=== PATIENT | female | born 1970 | race Caucasian/White ===

== ENCOUNTER 2017-06-27 09:38 | Emergency (ER) | payer MEDICARE ==
--- NOTE | 2017-06-27 10:16 | UC ---
Throat Pain/Nasal Robert HPI - HPI Summary HPI Summary: sores on the lower lip x 3 days + painful, swollen, multiple sores on the mouth and and throat no fever, no chills no cold sx - History of Current Complaint Chief Complaint: UCGI Stated Complaint: ORAL/THROAT COMPLAINT Time Seen by Provider: 06/27/17 10:01 Hx Obtained From: Patient Hx Last Menstrual Period: 2009 ?: No Onset/Duration: Gradual Onset, Lasting Days - 3, Still Present Severity: Moderate Cough: None Associated Signs & Symptoms: Positive: Nasal Discharge. Negative: Wheezing, Hoarseness, Sinus Discomfort, Fever, Rash - Allergies/Home Medications Allergies/Adverse Reactions: Allergies Allergy/AdvReac Type Severity Reaction Status Date / Time ASPERIDOL Allergy Swelling Uncoded 06/27/17 09:57 Home Medications: Home Medications Docosanol 10%* [Abreva 10%*] 1 applic TOPICAL SEE INSTRUCTIONS 06/27/17 [ History Confirmed 06/27/17] PMH/Surg Hx/FS Hx/Imm Hx GI/ History: Gastroesophageal Reflux Psychological History: Depression - Surgical History Surgical History: Yes Surgery Procedure, Year, and Place: gallbladder. TUBAL. SCRAPING OF UTERUS - Family History Known Family History: Negative: Diabetes - Social History Alcohol Use: None Substance Use Type: None Smoking Status (MU): Never Smoked Tobacco Review of Systems Constitutional: Negative Skin: Negative Eyes: Negative ENT: Sore Throat Respiratory: Negative Cardiovascular: Negative Gastrointestinal: Negative Genitourinary: Negative All Other Systems Reviewed And Are Negative: Yes Physical Exam Triage Information Reviewed: Yes Appearance: Well-Appearing, No Pain Distress, Well-Nourished Vital Signs: Initial Vital Signs Temp 99.5 F 06/27/17 09:46 Pulse 100 06/27/17 09:46 Resp 20 06/27/17 09:46 BP 135/97 06/27/17 09:46 Pulse Ox 98 06/27/17 09:46 Vital Signs Reviewed: Yes Eyes: Positive: Conjunctiva Clear ENT: Positive: Normal ENT inspection, Hearing grossly normal, Pharyngeal erythema, Other: - + sores mid lower lip , swollen, tender , Neck: Positive: Supple, Tenderness @, Enlarged Nodes @ Respiratory: Positive: Chest non-tender, Lungs clear, Normal breath sounds Cardiovascular: Positive: RRR, No Murmur, Pulses Normal Musculoskeletal Exam: Normal Musculoskeletal: Positive: Strength Intact, ROM Intact, No Edema Skin Exam: Normal Throat Pain/Nasal Course/Dx - Differential Dx/Diagnosis Provider Diagnoses: cold sores. pharyngitis Discharge - Discharge Plan Condition: Stable Disposition: HOME Prescriptions: ValACYclovir (*) [Valtrex 500 mg (*)] 500 mg PO BID #6 tab Patient Education Materials: Oral Herpes Simplex Virus Infections (ED) Referrals: Ozzie Del Toro MD [Primary Care Provider] - 7 Days
[2017-06-27 10:17] VITALS: BP 135/97
== END 2017-06-27 10:21 | disposition home or self-care (01) ==
LOC: UCCORT 09:38
DX: B00.1 Herpesviral vesicular dermatitis (principal); J02.9 Acute pharyngitis, unspecified; Z88.8 Allergy status to other drugs, medicaments and biological substances
CPT/HCPCS: 99212; G0463

== ENCOUNTER 2019-02-26 11:28 | Emergency (ER) | payer MEDICARE ==
[2019-02-26 12:20] VITALS: BP 139/92
--- NOTE | 2019-02-26 12:37 | UC ---
UC General HPI - HPI Summary HPI Summary: pt states the inside and outside of her vaginal area is very red this am. she denies any discharge, odor or lesions. she had recent std testing which was negative. she has a hx of genital herpes but no recent out breaks. she wants to ensure not scabies. she denies use of any new soaps. - History of Current Complaint Chief Complaint: UCRash Stated Complaint: RASH PERSONAL Time Seen by Provider: 02/26/19 12:24 Hx Obtained From: Patient Hx Last Menstrual Period: 2009 Onset/Duration: Sudden Onset Timing: Constant Pain Intensity: 0 Associated Signs & Symptoms: Negative: Abdominal Pain, Dysuria, Fever - Allergy/Home Medications Allergies/Adverse Reactions: Allergies Allergy/AdvReac Type Severity Reaction Status Date / Time risperidone [From Risperdal] Allergy Severe WATER Verified 02/26/19 12:04 RETENTION Home Medications: Home Medications Gabapentin 600 mg PO QID 02/26/19 [History Confirmed 02/26/19] traMADol TAB* [Ultram*] 50 mg PO Q6HR PRN 02/26/19 [History Confirmed 02/26/19] PMH/Surg Hx/FS Hx/Imm Hx - Additional Past Medical History Additional PMH: genital herpes GI/ History: Gastroesophageal Reflux - Surgical History Surgical History: Yes Surgery Procedure, Year, and Place: gallbladder. TUBAL. SCRAPING OF UTERUS. CARPAL TUNNEL - Family History Known Family History: Positive: Non-Contributory Negative: Diabetes - Social History Alcohol Use: None Substance Use Type: None Smoking Status (MU): Never Smoked Tobacco Review of Systems All Other Systems Reviewed And Are Negative: Yes Constitutional: Negative: Fever Gastrointestinal: Negative: Abdominal Pain Genitourinary: Negative: Dysuria, Frequency, Urgency, Vaginal/Penile Itching, Vaginal/Penile Discharge, Ulceration/Lesion, Abnormal Bleeding Physical Exam Triage Information Reviewed: Yes Appearance: Well-Appearing Vital Signs: Initial Vital Signs Temp 97.9 F 02/26/19 12:09 Pulse 98 02/26/19 12:09 Resp 18 02/26/19 12:09 BP 139/92 02/26/19 12:09 Pulse Ox 98 02/26/19 12:09 Vital Signs Reviewed: Yes Eyes: Positive: Conjunctiva Clear ENT: Positive: Normal ENT inspection Neck: Positive: Supple Respiratory: Positive: Lungs clear Cardiovascular: Positive: RRR Abdomen Description: Positive: Nontender, No Organomegaly, Soft Bowel Sounds: Positive: Present Pelvic Exam: Positive: Other - Groin has no rash. No gential infestations. The inner labial folds and vaginal opening are injected but no lesions or ulcerations. No odor. Speculum exam shows no discharge or lesions. Musculoskeletal: Positive: ROM Intact Neurological: Positive: Alert Psychological: Positive: Age Appropriate Behavior Skin Exam: Normal Course/Dx - Course Course Of Treatment: PT DECLINED ANY STD TESTING. THE ERYTHEMA IS EXTERNAL/ EARLY HERPES OUTBREAK AND YEAST INFECTIONS ARE POSSIBLE THUS I WILL TX FOR BOTH. - Diagnoses Provider Diagnosis: Vulvovaginitis Discharge - Sign-Out/Discharge Documenting (check all that apply): Patient Departure All imaging exams completed and their final reports reviewed: No Studies - Discharge Plan Condition: Stable Disposition: HOME Prescriptions: Fluconazole 150 MG TAB* [Diflucan 150 MG TAB*] 150 mg PO UC ONCE #1 tablet ValACYclovir (*) [Valtrex 1 GM(*)] 1 gm PO DAILY 5 Days #5 tab Patient Education Materials: Genital Herpes Simplex (ED), Vaginitis (ED) Referrals: Ozzie Del Toro MD [Primary Care Provider] - 5 Days - Billing Disposition and Condition Condition: STABLE Disposition: Home
== END 2019-02-26 13:01 | disposition home or self-care (01) ==
LOC: UCCORT 11:28
DX: N76.0 Acute vaginitis (principal); Z87.42 Personal history of other diseases of the female genital tract; K21.9 Gastro-esophageal reflux disease without esophagitis; Z88.8 Allergy status to other drugs, medicaments and biological substances
CPT/HCPCS: 99212; G0463

== ENCOUNTER 2019-02-27 07:49 | Emergency (ER) | payer MEDICARE ==
[2019-02-27 08:08] VITALS: BP 141/90
--- NOTE | 2019-02-27 08:21 | UC ---
UC General HPI - HPI Summary HPI Summary: Was seen here on 02/26 for rash in perineal area - started treatment for HSV and Yeast. States last night she did not sleep because she feels like there are bugs crawling down there. No bites. States its not itchy. No anal pain or itching. No vaginal discharge. Denies vaginal itching. LMP: 2009 States she was tested for STI's a few weeks ago and that is when she was tested positive for HSV, all other STIs are negative. No fever. Otherwise acting well. Is not around young children. Takes care of an elderly lady. No rash or itching elsewhere. - History of Current Complaint Chief Complaint: Lee Ann Stated Complaint: PERSONAL Time Seen by Provider: 02/27/19 08:03 Hx Last Menstrual Period: 2009 Pain Intensity: 0 - Allergy/Home Medications Allergies/Adverse Reactions: Allergies Allergy/AdvReac Type Severity Reaction Status Date / Time risperidone [From Risperdal] Allergy Severe WATER Verified 02/27/19 08:08 RETENTION Home Medications: Home Medications lamoTRIgine TAB(*) [LaMICtal TAB(*)] 100 mg PO DAILY 02/27/19 [History Confirmed 02/27/19] PMH/Surg Hx/FS Hx/Imm Hx Previously Healthy: Yes - Surgical History Surgical History: Yes Surgery Procedure, Year, and Place: gallbladder. TUBAL. SCRAPING OF UTERUS. CARPAL TUNNEL - Family History Known Family History: Positive: Non-Contributory Negative: Diabetes - Social History Alcohol Use: None Substance Use Type: None Smoking Status (MU): Never Smoked Tobacco Review of Systems All Other Systems Reviewed And Are Negative: Yes Constitutional: Positive: Negative Genitourinary: Positive: Other - vaginal rash Physical Exam Triage Information Reviewed: Yes Appearance: Well-Appearing Vital Signs: Initial Vital Signs Temp 98.2 F 02/27/19 08:01 Pulse 100 02/27/19 08:01 Resp 18 02/27/19 08:01 BP 141/90 02/27/19 08:01 Pulse Ox 100 02/27/19 08:01 ENT: Positive: Normal ENT inspection Respiratory: Positive: Lungs clear, No respiratory distress Cardiovascular: Positive: RRR, No Murmur Abdomen Description: Positive: Nontender Pelvic Exam: Positive: Other - white small flecks of particles similar to pinworm in appearance. No lesions or ulcers. No erythema or rash Course/Dx - Course Course Of Treatment: This is a 48 yr old who is sexually active that does not use protection concern for bugs crawling in vagina Assessment Unclear the etiology. Findings concerning for pinworm. Studies sent for GC/C and trichomonas Swab sent with pinworm paddle Plan Recommend taking medication for pinworm according to box instructions and repeating in 2 weeks Washing all sheets and clothes on high temp We will contact you if results are abnormal If you continue to have symptoms despite negative results, recommend follow up with Gynecology - Diagnoses Provider Diagnosis: Pinworm infection Discharge - Sign-Out/Discharge Documenting (check all that apply): Patient Departure All imaging exams completed and their final reports reviewed: No Studies - Discharge Plan Condition: Stable Disposition: HOME Prescriptions: Pyrantel Pamoate [Pinworm Medicine] 1 applic PO ONCE #1 oral.susp Patient Education Materials: Pinworm Infection (ED) Referrals: Ozzie Del Toro MD [Primary Care Provider] - Yamilka Salcedo MD [Medical Doctor] - Additional Instructions: Recommend taking medication for pinworm according to box instructions and repeating in 2 weeks Washing all sheets and clothes on high temp We will contact you if results are abnormal If you continue to have symptoms despite negative results, recommend follow up with Gynecology Blood pressure slightly elevated, recommend recheck if remains elevated, follow up with PCP - Billing Disposition and Condition Condition: STABLE Disposition: Home
--- NOTE | 2019-02-27 14:15 | UC ---
- Progress Note Progress Note: Preliminary report on Pinworm study was negative for pinworms. Recommend no further treatment with Pinx for symptoms. Recommend follow up with an CARE TRANSITION COORDINATOR for further evaluation. We will contact you if any other studies sent come back positive. Course/Dx - Diagnoses Provider Diagnoses: Pinworm infection Discharge - Sign-Out/Discharge Documenting (check all that apply): Post-Discharge Follow Up All imaging exams completed and their final reports reviewed: No Studies - Discharge Plan Condition: Stable Disposition: HOME Prescriptions: Pyrantel Pamoate [Pinworm Medicine] 1 applic PO ONCE #1 oral.susp Patient Education Materials: Pinworm Infection (ED) Referrals: Yamilka Salcedo MD [Medical Doctor] - Ozzie Del Toro MD [Primary Care Provider] - Additional Instructions: Recommend taking medication for pinworm according to box instructions and repeating in 2 weeks Washing all sheets and clothes on high temp We will contact you if results are abnormal If you continue to have symptoms despite negative results, recommend follow up with Gynecology Blood pressure slightly elevated, recommend recheck if remains elevated, follow up with PCP - Billing Disposition and Condition Condition: STABLE Disposition: Home
[2019-02-28 13:06] LABS: Neisseria gonorrhoeae (GC) RNA Negative (Negative)
[2019-02-28 13:16] LABS: Trichomonas vaginalis Result Negative (Negative)
--- NOTE | 2019-02-28 18:50 | UC ---
- Progress Note Progress Note: NEg GC/CH/ tich no change ljj 02/28/19 Course/Dx - Diagnoses Provider Diagnoses: Pinworm infection Discharge - Sign-Out/Discharge Documenting (check all that apply): Post-Discharge Follow Up All imaging exams completed and their final reports reviewed: No Studies - Discharge Plan Condition: Stable Disposition: HOME Prescriptions: Pyrantel Pamoate [Pinworm Medicine] 1 applic PO ONCE #1 oral.susp Patient Education Materials: Pinworm Infection (ED) Referrals: Yamilka Salcedo MD [Medical Doctor] - Ozzie Del Toro MD [Primary Care Provider] - Additional Instructions: Recommend taking medication for pinworm according to box instructions and repeating in 2 weeks Washing all sheets and clothes on high temp We will contact you if results are abnormal If you continue to have symptoms despite negative results, recommend follow up with Gynecology Blood pressure slightly elevated, recommend recheck if remains elevated, follow up with PCP - Billing Disposition and Condition Condition: STABLE Disposition: Home
== END 2019-02-27 09:01 | disposition home or self-care (01) ==
LOC: UCCORT 07:49
DX: B80 Enterobiasis (principal); Z88.8 Allergy status to other drugs, medicaments and biological substances
CPT/HCPCS: 87480; 87491; 87510; 87591; 87661; 99212; G0463

== ENCOUNTER 2019-07-09 18:38 | Emergency (ER) | payer MEDICARE ==
[2019-07-09 19:27] VITALS: BP 129/92
--- NOTE | 2019-07-09 21:56 | UC ---
Complaint Female HPI - HPI Summary HPI Summary: Pt presents with c/o tender area on right inner labia major. Pt reports that she felt a lard mass on her right inner labia that she felt today and scraped off, noted that the area bleed a small amount and now is tender. Pt has hx of genital herpes and is concerned that she is having an outbreak. - History Of Current Complaint Chief Complaint: UCGU Stated Complaint: PERSONAL Time Seen by Provider: 07/09/19 20:22 Hx Obtained From: Patient Hx Last Menstrual Period: 2009 ?: No Onset/Duration: Sudden Onset, Still Present Timing: Constant Severity Initially: Moderate Severity Currently: Mild Pain Intensity: 3 Character: Burning Aggravating Factor(s): Movement Alleviating Factor(s): Nothing Associated Signs And Symptoms: Positive: Negative - Risk Factors Ectopic Risk Factor: Negative Ovarian Torsion Risk Factor: Negative - Allergies/Home Medications Allergies/Adverse Reactions: Allergies Allergy/AdvReac Type Severity Reaction Status Date / Time risperidone [From Risperdal] Allergy Severe WATER Verified 07/09/19 19:27 RETENTION PMH/Surg Hx/FS Hx/Imm Hx Previously Healthy: Yes - Surgical History Surgical History: Yes Surgery Procedure, Year, and Place: gallbladder. TUBAL. SCRAPING OF UTERUS. CARPAL TUNNEL - Family History Known Family History: Positive: Non-Contributory Negative: Diabetes - Social History Occupation: Employed Full-time Lives: With Family Alcohol Use: None Substance Use Type: None Smoking Status (MU): Never Smoked Tobacco Have You Smoked in the Last Year: No Review of Systems All Other Systems Reviewed And Are Negative: Yes Constitutional: Positive: Negative Skin: Positive: Negative Eyes: Positive: Negative ENT: Positive: Negative Respiratory: Positive: Negative Gastrointestinal: Positive: Negative Genitourinary: Positive: Vaginal/Penile Tenderness, Ulceration/Lesion Motor: Positive: Negative Neurovascular: Positive: Negative Musculoskeletal: Positive: Negative Neurological: Positive: Negative Psychological: Positive: Negative Is Patient Immunocompromised?: No Physical Exam Triage Information Reviewed: Yes Appearance: Well-Appearing, Obese Vital Signs: Initial Vital Signs Temp 98 F 07/09/19 19:17 Pulse 98 07/09/19 19:17 Resp 16 07/09/19 19:17 BP 129/92 07/09/19 19:17 Pulse Ox 98 07/09/19 19:17 Vital Signs Reviewed: Yes Eye Exam: Normal ENT Exam: Normal ENT: Positive: Hearing grossly normal Dental Exam: Normal Neck exam: Normal Respiratory Exam: Normal Respiratory: Positive: No respiratory distress Pelvic Exam: Positive: Other - right inner labia with abrasion, no vessicles Musculoskeletal Exam: Normal Neurological Exam: Normal Psychological Exam: Normal Skin Exam: Normal Complaint Female Dx - Differential Dx/Diagnosis Differential Diagnosis/HQI/PQRI: Sexually Transmitted Disease Provider Diagnosis: Abrasion of labia Discharge ED - Sign-Out/Discharge Documenting (check all that apply): Patient Departure All imaging exams completed and their final reports reviewed: No Studies - Discharge Plan Condition: Stable Disposition: HOME Patient Education Materials: Abrasion (ED) Referrals: Ozzie Del Toro MD [Primary Care Provider] - If Needed Additional Instructions: Please follow up with your PCP as needed. - Billing Disposition and Condition Condition: STABLE Disposition: Home
== END 2019-07-09 20:46 | disposition home or self-care (01) ==
LOC: UCCORT 18:38
DX: S30.814A Abrasion of vagina and vulva, initial encounter (principal); X58.XXXA Exposure to other specified factors, initial encounter; Y92.9 Unspecified place or not applicable
CPT/HCPCS: 99211; G0463

== ENCOUNTER 2019-09-06 08:54 | Emergency (ER) | payer MEDICARE ==
--- NOTE | 2019-09-06 10:18 | UC ---
Complaint Female HPI - HPI Summary HPI Summary: 49 y/o female presents to the urgent care c/o possible outbreak of genital herpes since yesterday. She has been Lately under a lot of stress and she run out of her Valtrex PO. She also recently shaved her pubic hair and also rash an itchy rash over the suprapubic area. LMP: 2009 w/ Hx of /L tubal ligation. Pt also c/o of feeling very stress out and depressed w/ lack of sleep. She states she got involved w/ a wrestler over the internet and has been having a relationship w/ him for several months. He influenced her to deposit some checks to her bank and now she found out that those checks bounced back and she cashed one of them which was $50 worth. She is so anxious that last night she was having suicidal thoughts and was thinking of taking a lot of her pills. However she thought of her daughter. She recently saw her Psychiatrist Dr Leti Flowers SANDWICH MAKER at [facility] Monday and she is aware of her problem and her feelings. However, she is feeling she is feeling hopeless. Her est friend is going today to the back to try to find a solution since the bank is holding her security check. Pt starts crying and states she feels unsafe and is afraid she will harm herself. Pt denies fever, SOB, chest pain HUANG, dizziness, abdominal pain, pelvic pain, urinary symptoms, vaginal discharge, Hx of other STD's. flank pain. She also denies hallucinations or delusions or homicidal ideation. - History Of Current Complaint Chief Complaint: UCGU Stated Complaint: PERSONAL Time Seen by Provider: 09/06/19 10:17 Hx Obtained From: Patient Hx Last Menstrual Period: 2009 ?: No - B/L tubal ligation Onset/Duration: Gradual Onset, Lasting Days - 1 day, Still Present, Worse Since - this morning Timing: Constant Severity Initially: Mild Severity Currently: Moderate Pain Intensity: 1 Pain Scale Used: 0-10 Numeric Character: Not Applicable Aggravating Factor(s): Urination Alleviating Factor(s): Nothing Associated Signs And Symptoms: Positive: Genital Swelling, Genital Blisters. Negative: Fever, Back Pain, Vaginal Bleeding/Discharge, Vaginal Discharge, Nausea, Vomiting(# Of Episodes =) Related Hx: Similar Episode/Dx as: - Herpes II - Risk Factors Ectopic Risk Factor: Negative Ovarian Torsion Risk Factor: Negative - Allergies/Home Medications Allergies/Adverse Reactions: Allergies Allergy/AdvReac Type Severity Reaction Status Date / Time risperidone [From Risperdal] Allergy Severe WATER Verified 09/17/19 09:54 RETENTION Home Medications: Home Medications Esomeprazole Magnesium [Nexium 24Hr] 20 mg PO DAILY 09/06/19 [History Confirmed 09/06/19] PMH/Surg Hx/FS Hx/Imm Hx Previously Healthy: Yes Other GI/ History: Herpes II Psychological History: Anxiety, Depression - Major Depression disorder - Surgical History Surgical History: Yes Surgery Procedure, Year, and Place: gallbladder. TUBAL. SCRAPING OF UTERUS. CARPAL TUNNEL - Family History Known Family History: Positive: None - Pt denies PMHX, Non-Contributory Negative: Diabetes - Social History Occupation: Employed Full-time Lives: With Family Alcohol Use: Rare Substance Use Type: None Smoking Status (MU): Never Smoked Tobacco Have You Smoked in the Last Year: No Review of Systems All Other Systems Reviewed And Are Negative: Yes Constitutional: Positive: Negative Skin: Positive: Rash - itchy rash in the suprabubic area and labia majora w/ some vesicles Eyes: Positive: Negative ENT: Positive: Negative Respiratory: Positive: Negative Cardiovascular: Positive: Negative Gastrointestinal: Positive: Negative Genitourinary: Positive: Vaginal/Penile Itching, Ulceration/Lesion - labia majora painful vesicles Motor: Positive: Negative Neurovascular: Positive: Negative Musculoskeletal: Positive: Negative Neurological: Positive: Negative Psychological: Positive: Anxious, Depressed Is Patient Immunocompromised?: No Physical Exam - Summary Physical Exam Summary: Vital signs: reviewed General: well developed, well nourished obese female sitting in the examining table w/o any acute distress. Head: Normocephalic, no lesions. Eyes: PERRLA, EOM's full, conjunctiva clear, fundi grossly normal. Ears: EAC's clear, TM's normal. Nose: Mucosa normal, no obstruction. Throat: Clear, no exudates, no lesions. Neck: Supple, no masses, no thyromegaly, no bruits. Chest: Lungs clear, no rales, no rhonchi, no wheezes. Heart: RR, no murmurs, no rubs, no gallops. Abdomen: Soft, no tenderness, no masses, BS normal. Pelvic: I was assisted by nurse iBa Bowling. External genitalia within normal limits. There is discrete vesicles in the left labia majora w/ mild tenderness to palpation. Suprapubic area w/ erythema and mild swelling, Speculum exam declined by patient. Rectal: No lesions, no hemorrhoids, Back: Normal curvature, no tenderness. Extremities: FROM, no deformities, no edema, no erythema. Neuro: Physiological, no localizing findings. Skin: Normal, no rashes, no lesions noted. Triage Information Reviewed: Yes Vital Signs: Initial Vital Signs Temp 97.7 F 09/06/19 09:23 Pulse 100 09/06/19 09:23 Resp 18 09/06/19 09:23 BP 131/84 09/06/19 09:23 Pulse Ox 100 09/06/19 09:23 Complaint Female Dx - Course Course Of Treatment: 49 y/o female presents to the urgent care c/o possible outbreak of genital herpes since yesterday. She has been Lately under a lot of stress and she run out of her Valtrex PO. She also recently shaved her pubic hair and also rash an itchy rash over the suprapubic area. LMP: 2009 w/ Hx of /L tubal ligation. Pt also c/o of feeling very stress out and depressed w/ lack of sleep. She states she got involved w/ a wrestler over the internet and has been having a relationship w/ him for several months. He influenced her to deposit some checks to her bank and now she found out that those checks bounced back and she cashed one of them which was $50 worth. She is so anxious that last night she was having suicidal thoughts and was thinking of taking a lot of her pills. However she thought of her daughter. She recently saw her Psychiatrist Dr Leti Flowers SANDWICH MAKER at [facility] monday and she is aware of her problem and her feelings. However, she is feeling she is feeling hopeless. Her est friend is going today to the back to try to find a solution since the bank is holding her security check. Pt starts crying and states she feels unsafe and is afraid she will harm herself. Pt denies fever, SOB, chest pain HUANG, dizziness, abdominal pain, pelvic pain, urinary symptoms, vaginal discharge, Hx of other STD's. flank pain. She also denies hallucinations or delusions or homicidal ideation. Hx obtained. Hx obtained. PE: WNL Vitals WNL, Pt is hemodynamically stable. Pt declines pelvic exam. UA: negative. I was assisted by Nurse Bia Bowling for the genital exam. pt w/ a flare up of Genital herpes and also some scattered michael cruries. Pt Rx Valtrex PO and Chlotrimazole topical cream as directed below. I spoke extensively w/ Pt in regards to her feeling and sucidal ideation. Then I discussed Pt's feelings w/ Dr Eid who recommends to call Psychiatrist. I spoke to SANDWICH MAKER Leti Hernandez at [facility] who recommend to sent Pt to [facility] for a Psychiatric evaluation for suicidal Ideation w/ a plan to overdose. I discussed plan of care w/ PT and she accepted. I spoke w/ DR Abernathy at [facility] who accepted the patient. Pt was left clinic hemodynamically stable, A&Ox3 and taken by ambulance. - Differential Dx/Diagnosis Differential Diagnosis/HQI/PQRI: Cervicitis, Pelvic Inflammatory Disease, Renal Colic, Sexually Transmitted Disease, Ureteral Stone, Urinary Tract Infection Provider Diagnosis: Genital herpes, Verbalizes suicidal thoughts, Tinea cruris - Physician Notifications Discussed Patient Care With: Dany Eid - DR Eid agreed w/ Pt's plan of care Discharge ED - Sign-Out/Discharge Documenting (check all that apply): Patient Departure - Pt sent to [facility] for Psychiatric evaluation for suicidal thought w/plan to overdose All imaging exams completed and their final reports reviewed: No Studies - Discharge Plan Condition: Stable Disposition: TRANS HIGHER LVL OF CARE FAC Prescriptions: Clotrimazole 1% CREAM* [Clotrimazole 1%*] 1 applic TOPICAL BID #1 tube ValACYclovir (*) [Valtrex 1 GM(*)] 1 gm PO BID #20 tab Patient Education Materials: Genital Herpes Simplex (ED) Referrals: Ozzie Del Toro MD [Primary Care Provider] - Additional Instructions: I think you need a higher level or care for your suicidal thoughts w/ a plan to overdose. I you will sent to the [facility] for a Psychiatric evaluation. I spoke to the ER attending Dr Abernathy. They are expecting you. - Billing Disposition and Condition Condition: STABLE Disposition: Trans Higher Lvl of Care Fac - Attestation Statements Provider Attestation: Per institutional requirements, I have reviewed the chart, however, I was not consulted specifically or made aware of this patient by the midlevel provider. I did not personally evaluate, interact with , or disposition this patient.
[2019-09-06 11:42] VITALS: BP 134/99
== END 2019-09-06 11:42 | disposition short-term general hospital (02) ==
LOC: UCCORT 08:54
DX: A60.00 Herpesviral infection of urogenital system, unspecified (principal); R45.851 Suicidal ideations; Z88.8 Allergy status to other drugs, medicaments and biological substances
CPT/HCPCS: 81003; 99213; G0463

== ENCOUNTER 2019-09-17 08:58 | Emergency (ER) | payer MEDICARE ==
[2019-09-17 10:02] VITALS: BP 140/102
--- NOTE | 2019-09-17 10:51 | UC ---
Skin Complaint HPI - HPI Summary HPI Summary: Pt presents with c/o "itchy skin" that began 7 days ago. Pt states that she has been to [facility] with similar c/o 2 days ago and 4 days ago. Pt was also seen here 1 week ago for suicidal ideation and exacerbation of major depressive disorder. Pt states it feels as though she is randomly getting bit, that she has been applying lotion to her skin and noticed what she thought was an eruption of insect eggs on her abdomen, that have since resolved. - History of Current Complaint Chief Complaint: UCSkin Time Seen by Provider: 09/17/19 10:28 Stated Complaint: ITCHY ALL OVER/SKIN COMPLAINT Hx Obtained From: Patient Hx Last Menstrual Period: 2009 ?: No Onset/Duration: Sudden Onset, Lasting Days, Still Present Skin Exposure Onset/Duration: Days Ago Timing: Constant Onset Severity: Moderate Current Severity: Moderate Pain Intensity: 0 Location: Diffuse, Generalized Character: Pruritus Aggravating Factor(s): Nothing Alleviating Factor(s): Nothing Associated Signs & Symptoms: Positive: Negative Related History: Insect Bite/Sting - perceived - Allergy/Home Medications Allergies/Adverse Reactions: Allergies Allergy/AdvReac Type Severity Reaction Status Date / Time risperidone [From Risperdal] Allergy Severe WATER Verified 09/17/19 09:54 RETENTION PMH/Surg Hx/FS Hx/Imm Hx Previously Healthy: Yes Psychological History: Depression - Surgical History Surgical History: Yes Surgery Procedure, Year, and Place: gallbladder. TUBAL. SCRAPING OF UTERUS. CARPAL TUNNEL - Family History Known Family History: Positive: Non-Contributory Negative: Diabetes - Social History Occupation: Unemployed Lives: With Family Alcohol Use: Rare Substance Use Type: None Smoking Status (MU): Never Smoked Tobacco Have You Smoked in the Last Year: No Review of Systems All Other Systems Reviewed And Are Negative: Yes Constitutional: Positive: Negative Skin: Positive: Rash - resolved, Other - pruritus Eyes: Positive: Negative ENT: Positive: Negative Respiratory: Positive: Negative Cardiovascular: Positive: Negative Gastrointestinal: Positive: Negative Genitourinary: Positive: Negative Motor: Positive: Negative Neurovascular: Positive: Negative Musculoskeletal: Positive: Negative Neurological: Positive: Negative Psychological: Positive: Negative Is Patient Immunocompromised?: No Physical Exam Triage Information Reviewed: Yes Appearance: Well-Appearing, Obese Vital Signs: Initial Vital Signs Temp 97.2 F 09/17/19 09:54 Pulse 92 09/17/19 09:54 Resp 18 09/17/19 09:54 BP 140/102 09/17/19 09:54 Pulse Ox 100 09/17/19 09:54 Vital Signs Reviewed: Yes Eye Exam: Normal ENT Exam: Normal Dental Exam: Normal Neck exam: Normal Respiratory: Positive: No respiratory distress Pelvic Exam: Positive: External Exam Normal - no rash or evidence of insect bites or pubic lice appreciated Musculoskeletal Exam: Normal Neurological Exam: Normal Psychological Exam: Normal Skin Exam: Normal Course/Dx - Course Course Of Treatment: I discussed with the pt the need to follow up with PCP and mental health providers. I discussed with her treatment plan of elimite and possible exacerbation of her depression and perhaps other mental health disorder. Pt verbalized understanding and agreed to plan of care - Differential Diagnoses - Skin Complaint Differential Diagnoses: Head Lice, Scabies, Other - pruritic skin - Diagnoses Provider Diagnosis: Delusions of parasitosis, Itchy skin Discharge ED - Sign-Out/Discharge Documenting (check all that apply): Patient Departure All imaging exams completed and their final reports reviewed: No Studies - Discharge Plan Condition: Stable Disposition: HOME Prescriptions: Permethrin [Elimite] 60 gm TP BEDTIME #1 cream..g. Patient Education Materials: Itchy Skin (ED) Referrals: Ozzie Del Toro MD [Primary Care Provider] - As Soon As Possible Additional Instructions: Please follow up with your mental health provider, pcp and if needed, a agent licensing clerk. - Billing Disposition and Condition Condition: STABLE Disposition: Home
== END 2019-09-17 11:00 | disposition home or self-care (01) ==
LOC: UCCORT 08:58
DX: L29.9 Pruritus, unspecified (principal); F22 Delusional disorders; Z88.8 Allergy status to other drugs, medicaments and biological substances
CPT/HCPCS: 99212; G0463

== ENCOUNTER 2019-12-12 15:02 | Emergency (ER) | payer MEDICARE ==
[2019-12-12] MEDS ORDERED: Albuterol/Ipratropium NEB.SOL* Albuterol 2.5 MG/Ipratropium 0.5 MG 3 ML INH ONE (15:20)
--- NOTE | 2019-12-12 15:21 | UC ---
Respiratory Complaint HPI - HPI Summary HPI Summary: 49-year-old female who states she had pneumonia approximately 2 weeks ago. She was on an antibiotic states she continues to have some cough and wheezing. - History of Current Complaint Stated Complaint: COLD Time Seen by Provider: 12/12/19 15:15 Hx Obtained From: Patient Hx Last Menstrual Period: 2009 ?: No Onset/Duration: Gradual Onset Timing: Intermittent Episodes Severity Initially: Mild Severity Currently: Mild Aggravating Factors: Nothing Alleviating Factors: Nothing Associated Signs And Symptoms: Positive: Wheezing, URI, Nasal Congestion - Allergies/Home Medications Allergies/Adverse Reactions: Allergies Allergy/AdvReac Type Severity Reaction Status Date / Time risperidone [From Risperdal] Allergy Severe WATER Verified 12/12/19 15:30 RETENTION Home Medications: Home Medications ALPRAZolam TAB* [Xanax TAB*] 0.25 mg PO TID PRN 12/12/19 [History Confirmed ] PMH/Surg Hx/FS Hx/Imm Hx Previously Healthy: Yes Cardiovascular History: Hypertension Psychological History: Depression - Surgical History Surgical History: Yes Surgery Procedure, Year, and Place: gallbladder. TUBAL. SCRAPING OF UTERUS. CARPAL TUNNEL - Family History Known Family History: Positive: Non-Contributory Negative: Diabetes - Social History Lives: With Family Alcohol Use: Rare Substance Use Type: None Smoking Status (MU): Never Smoked Tobacco Have You Smoked in the Last Year: No Review of Systems All Other Systems Reviewed And Are Negative: Yes Respiratory: Positive: Cough - Nonproductive cough with mild wheezing. Is Patient Immunocompromised?: No Physical Exam Triage Information Reviewed: Yes Appearance: Well-Appearing, No Pain Distress, Well-Nourished Vital Signs Reviewed: Yes Eyes: Positive: Conjunctiva Clear ENT: Positive: Hearing grossly normal, Pharynx normal, TMs normal, Uvula midline Neck: Positive: Supple, Nontender, No Lymphadenopathy Respiratory: Positive: No respiratory distress, No accessory muscle use, Rhonchi - Very minimal rhonchi upper airways with some mild wheezing with forced expiration. No distress. Cardiovascular: Positive: RRR, No Murmur, Pulses Normal, Brisk Capillary Refill Musculoskeletal Exam: Normal Neurological Exam: Normal Psychological Exam: Normal Skin Exam: Normal Respiratory Course/Dx - Course Course Of Treatment: Chest x-ray:Indication: Cough, pneumonia. 2 views of the chest demonstrates no mediastinal shift. Heart is of normal size and configuration. Lung villegas are clear. IMPRESSION: No active cardiopulmonary disease is noted. The patient was given a DuoNeb treatment with increasing air movement and decreased wheezing. I'm going to start her on tapering dose of prednisone at definite follow-up with her primary care provider early next week if no improvement. If she has worsening symptoms coming into the weekend she is to go to the emergency room. - Differential Dx/Diagnosis Provider Diagnosis: Bronchitis Discharge ED - Sign-Out/Discharge Documenting (check all that apply): Patient Departure All imaging exams completed and their final reports reviewed: Yes - Discharge Plan Condition: Good Disposition: HOME Prescriptions: predniSONE 10 mg TAB [Deltasone 10 MG TAB*] 10 mg PO DAILY 11 Days #26 tab Patient Education Materials: Acute Bronchitis (ED) Referrals: Ilya Thornton PA [Primary Care Provider] - Additional Instructions: Increase fluids, follow-up with your primary care provider if no improvement in 5-6 days. Go to the emergency room if you have any worsening symptoms, difficulty breathing. Take the prednisone with food. - Billing Disposition and Condition Condition: GOOD Disposition: Home
[2019-12-12 15:43] VITALS: BP 120/75
== END 2019-12-12 16:39 | disposition home or self-care (01) ==
LOC: UCCORT 15:02
DX: J40 Bronchitis, not specified as acute or chronic (principal); J18.9 Pneumonia, unspecified organism; I10 Essential (primary) hypertension; R09.81 Nasal congestion; Z88.8 Allergy status to other drugs, medicaments and biological substances
CPT/HCPCS: 71046; 99212; A9270-GY; G0463; J7512

== ENCOUNTER 2019-12-16 17:52 | Emergency (ER) | payer MEDICARE ==
[2019-12-16 18:30] VITALS: BP 103/64
[2019-12-16] MEDS ORDERED: Albuterol 2.5 MG/3 ML NEB.SOL* (0.083%) INH ONE (18:47)
--- NOTE | 2019-12-16 18:49 | UC ---
Respiratory Complaint HPI - HPI Summary HPI Summary: 49-year-old female comes in with a chief complaint of cough chest congestion wheezing. Patient started with bronchitis symptoms about 6 days ago. Seen here 4 days ago started on prednisone patient reports she's getting worse. She had a nebulizer treatment and a chest x-ray on her last visit she's nebulizer treatment did help her at that time. Chest x-ray was read as no pneumonia. Patient diagnosed with bronchitis. Patient reports chest congestion wheezing are getting worse. Patient has splinting chest pain with coughing. - History of Current Complaint Chief Complaint: UCGeneralIllness Stated Complaint: COUGH Time Seen by Provider: 12/16/19 18:39 Hx Last Menstrual Period: scrapping of uterus Pain Intensity: 8 - Allergies/Home Medications Allergies/Adverse Reactions: Allergies Allergy/AdvReac Type Severity Reaction Status Date / Time risperidone [From Risperdal] Allergy Severe WATER Verified 12/16/19 18:31 RETENTION Home Medications: Home Medications buPROPion HCl [Wellbutrin Sr] 300 mg PO DAILY 12/16/19 [History Confirmed ] PMH/Surg Hx/FS Hx/Imm Hx Previously Healthy: Yes - Surgical History Surgical History: Yes Surgery Procedure, Year, and Place: gallbladder. TUBAL. SCRAPING OF UTERUS. CARPAL TUNNEL - Family History Known Family History: Positive: Non-Contributory Negative: Diabetes - Social History Alcohol Use: Rare Substance Use Type: None Smoking Status (MU): Former Smoker Have You Smoked in the Last Year: No When Did the Patient Quit Smoking/Using Tobacco: long time ago Review of Systems All Other Systems Reviewed And Are Negative: Yes Constitutional: Positive: Other - see hpi Skin: Positive: Negative Eyes: Positive: Negative ENT: Positive: Nasal Discharge Respiratory: Positive: Shortness Of Breath, Cough, Other - see hpi Cardiovascular: Positive: Chest Pain - see hpi Gastrointestinal: Positive: Negative Motor: Positive: Negative Neurovascular: Positive: Negative Musculoskeletal: Positive: Negative Neurological/Mental Status: Positive: Negative Psychological: Positive: Negative Is Patient Immunocompromised?: No Physical Exam Triage Information Reviewed: Yes Appearance: No Pain Distress, Well-Nourished, Ill-Appearing - mild Vital Signs: Initial Vital Signs Temp 97.7 F 12/16/19 18:24 Pulse 91 12/16/19 18:24 Resp 16 12/16/19 18:24 BP 103/64 12/16/19 18:24 Pulse Ox 98 12/16/19 18:24 Vital Signs Reviewed: Yes Eye Exam: Normal Eyes: Positive: Conjunctiva Clear ENT: Positive: Pharynx normal, Nasal congestion, TMs normal Neck: Positive: Supple Respiratory: Positive: No respiratory distress, Rhonchi Cardiovascular: Positive: RRR Musculoskeletal: Positive: Strength Intact, ROM Intact Neurological: Positive: Alert, Muscle Tone Normal Psychological: Positive: Age Appropriate Behavior Skin Exam: Normal Respiratory Course/Dx - Course Course Of Treatment: With the worsening bronchitis symptoms we'll start doxycycline. Patient does not have an albuterol inhaler at home so I prescribed an albuterol inhaler. O2 sat is 98%. Plan is to treat with the antibiotic albuterol inhaler at the steroid and then if she is not improving or worse she will go to the emergency department. - Differential Dx/Diagnosis Provider Diagnosis: Bronchitis with bronchospasm Discharge ED - Sign-Out/Discharge Documenting (check all that apply): Patient Departure All imaging exams completed and their final reports reviewed: No Studies - Discharge Plan Condition: Stable Disposition: HOME Prescriptions: Albuterol HFA INHALER* [Ventolin HFA Inhaler*] 2 puff INH Q4H PRN #1 mdi PRN Reason: Wheezing DOXYcycline CAP(*) [DOXYcycline 100MG CAP(*)] 100 mg PO BID #20 cap Patient Education Materials: Acute Bronchitis (ED), Bronchospasm (ED) Referrals: Ilya Thornton PA [Primary Care Provider] - Additional Instructions: FOLLOW UP WITH YOUR DOCTOR IF NOT COMPLETELY IMPROVED. GO TO THE EMERGENCY DEPARTMENT IF NOT IMPROVED OR WORSE; SHORTNESS OF BREATH, YOU FEEL ILL OR ANY QUESTIONS OR CONCERNS. - Billing Disposition and Condition Condition: STABLE Disposition: Home
== END 2019-12-16 19:21 | disposition home or self-care (01) ==
LOC: UCCORT 17:52
DX: J40 Bronchitis, not specified as acute or chronic (principal); J98.01 Acute bronchospasm; Z88.8 Allergy status to other drugs, medicaments and biological substances; Z87.891 Personal history of nicotine dependence
CPT/HCPCS: 99212; G0463

== ENCOUNTER 2020-01-16 09:51 | Emergency (ER) | payer MEDICARE ==
[2020-01-16 10:23] VITALS: BP 126/78
[2020-01-16 10:36] LABS: Influenza A Molecular Negative (Negative); Influenza B Molecular Negative (Negative)
--- NOTE | 2020-01-16 11:44 | UC ---
Respiratory Complaint HPI - HPI Summary HPI Summary: 49-year-old woman comes in with chief complaint of one day of bronchitis symptoms. Is having cough and shortness of breath. No fevers or chills. About 3 weeks ago patient was treated for bronchitis with an antibiotic and she improved. She was recently treated for bacterial vaginitis with metronidazole. Sputum is white. - History of Current Complaint Chief Complaint: UCRespiratory Stated Complaint: COUGH Time Seen by Provider: 01/16/20 10:26 Hx Last Menstrual Period: scrapping of uterus Pain Intensity: 0 - Allergies/Home Medications Allergies/Adverse Reactions: Allergies Allergy/AdvReac Type Severity Reaction Status Date / Time risperidone [From Risperdal] Allergy Severe WATER Verified 01/16/20 10:00 RETENTION Home Medications: Home Medications Gabapentin 600 mg PO QID 02/26/19 [History Confirmed 01/16/20] traMADol TAB* [Ultram*] 50 mg PO Q6HR PRN 02/26/19 [History Confirmed 01/16/20] lamoTRIgine TAB(*) [Lamictal TAB(*)] 100 mg PO DAILY 02/27/19 [History Confirmed 01/16/20] Esomeprazole Magnesium [Nexium 24Hr] 20 mg PO DAILY 09/06/19 [History Confirmed 01/16/20] ValACYclovir (*) [Valtrex 1 GM(*)] 1 gm PO BID #20 tab 09/06/19 [Rx Confirmed ] ALPRAZolam TAB* [Xanax TAB*] 0.25 mg PO TID PRN 12/12/19 [History Confirmed ] Albuterol HFA INHALER* [Ventolin HFA Inhaler*] 2 puff INH Q4H PRN #1 mdi [Rx Confirmed 01/16/20] DOXYcycline CAP(*) [DOXYcycline 100MG CAP(*)] 100 mg PO BID #20 cap 12/16/19 [ Rx Confirmed 01/16/20] buPROPion HCl [Wellbutrin Sr] 300 mg PO DAILY 12/16/19 [History Confirmed ] Albuterol HFA INHALER* [Ventolin HFA Inhaler*] 2 puff INH Q4H PRN #1 mdi [Rx] DOXYcycline CAP(*) [DOXYcycline 100MG CAP(*)] 100 mg PO BID #20 cap 01/16/20 [Rx ] PMH/Surg Hx/FS Hx/Imm Hx Previously Healthy: Yes - Surgical History Surgical History: Yes Surgery Procedure, Year, and Place: gallbladder. TUBAL. SCRAPING OF UTERUS. CARPAL TUNNEL - Family History Known Family History: Positive: Non-Contributory Negative: Diabetes - Social History Alcohol Use: Rare Substance Use Type: None Smoking Status (MU): Former Smoker Have You Smoked in the Last Year: No When Did the Patient Quit Smoking/Using Tobacco: long time ago in her 20's Review of Systems All Other Systems Reviewed And Are Negative: Yes Constitutional: Positive: Other - see hpi Skin: Positive: Negative Eyes: Positive: Negative ENT: Positive: Negative Respiratory: Positive: Cough, Other - see hpi Cardiovascular: Positive: Negative Gastrointestinal: Positive: Negative Motor: Positive: Negative Neurovascular: Positive: Negative Musculoskeletal: Positive: Negative Neurological/Mental Status: Positive: Negative Psychological: Positive: Negative Is Patient Immunocompromised?: No Physical Exam Triage Information Reviewed: Yes Appearance: Well-Appearing, No Pain Distress, Well-Nourished Vital Signs: Initial Vital Signs Temp 97.7 F 01/16/20 10:03 Pulse 94 01/16/20 10:03 Resp 17 01/16/20 10:03 BP 126/78 01/16/20 10:03 Pulse Ox 99 01/16/20 10:03 Vital Signs Reviewed: Yes Eye Exam: Normal Eyes: Positive: Conjunctiva Clear ENT: Positive: Pharynx normal, TMs normal Neck: Positive: Supple, Nontender Respiratory: Positive: Lungs clear, Normal breath sounds, No respiratory distress Cardiovascular: Positive: RRR Musculoskeletal: Positive: Strength Intact, ROM Intact Neurological: Positive: Alert, Muscle Tone Normal Psychological: Positive: Age Appropriate Behavior Skin Exam: Normal Respiratory Course/Dx - Course Course Of Treatment: Symptoms are most likely viral bronchitis. Discussed viral versus bacterial infections and the role of antibiotic spacer prefers to be on antibiotic at this time. Patient also tested for covert 19. She'll be in self-isolation. Patient to go to the emergency department if worse or any questions or concerns. - Differential Dx/Diagnosis Provider Diagnosis: Bronchitis Discharge ED - Sign-Out/Discharge Documenting (check all that apply): Patient Departure All imaging exams completed and their final reports reviewed: No Studies - Discharge Plan Condition: Stable Disposition: HOME Prescriptions: Albuterol HFA INHALER* [Ventolin HFA Inhaler*] 2 puff INH Q4H PRN #1 mdi PRN Reason: Wheezing DOXYcycline CAP(*) [DOXYcycline 100MG CAP(*)] 100 mg PO BID #20 cap Patient Education Materials: Acute Bronchitis (ED) Referrals: Ilya Thornton PA [Primary Care Provider] - Additional Instructions: MAINTAIN AT HOME ISOLATION. FOLLOW UP WITH YOUR DOCTOR IF NOT COMPLETELY IMPROVED. GO TO THE EMERGENCY DEPARTMENT IF WORSE OR ANY QUESTIONS OR CONCERNS. - Billing Disposition and Condition Condition: STABLE Disposition: Home
--- NOTE | 2020-01-20 08:45 | UC ---
- Progress Note Progress Note: Your coronavirus test was negative You no longer need to self quarantine Recommend continue to social distance and stay home If you have worsening or persistent symptoms, recommend further evaluation, call your PCP, return to urgent care or go to the ER Course/Dx - Diagnoses Provider Diagnoses: Bronchitis Discharge ED - Sign-Out/Discharge Documenting (check all that apply): Patient Departure, Post-Discharge Follow Up All imaging exams completed and their final reports reviewed: No Studies - Discharge Plan Condition: Stable Disposition: HOME Prescriptions: Albuterol HFA INHALER* [Ventolin HFA Inhaler*] 2 puff INH Q4H PRN #1 mdi PRN Reason: Wheezing DOXYcycline CAP(*) [DOXYcycline 100MG CAP(*)] 100 mg PO BID #20 cap Patient Education Materials: Acute Bronchitis (ED) Referrals: Ilya Thornton PA [Primary Care Provider] - - Billing Disposition and Condition Condition: STABLE Disposition: Home
--- NOTE | 2020-01-22 07:23 | UC ---
- Progress Note Progress Note: Your coronavirus test was negative You no longer need to self quarantine Recommend continue to social distance If your symptoms persist or worsen, recommend follow up with your PCP or return to urgent care Course/Dx - Diagnoses Provider Diagnoses: Bronchitis Discharge ED - Sign-Out/Discharge Documenting (check all that apply): Post-Discharge Follow Up All imaging exams completed and their final reports reviewed: No Studies - Discharge Plan Condition: Stable Disposition: HOME Prescriptions: Albuterol HFA INHALER* [Ventolin HFA Inhaler*] 2 puff INH Q4H PRN #1 mdi PRN Reason: Wheezing DOXYcycline CAP(*) [DOXYcycline 100MG CAP(*)] 100 mg PO BID #20 cap Patient Education Materials: Acute Bronchitis (ED) Referrals: Ilya Thornton PA [Primary Care Provider] - - Billing Disposition and Condition Condition: STABLE Disposition: Home
== END 2020-01-16 11:51 | disposition home or self-care (01) ==
LOC: UCCORT 09:51
DX: Z03.818 Encounter for observation for suspected exposure to other biological agents ruled out (principal); J40 Bronchitis, not specified as acute or chronic; Z87.891 Personal history of nicotine dependence; Z88.8 Allergy status to other drugs, medicaments and biological substances
CPT/HCPCS: 87651; 99212; G0463; U0002